=== PATIENT | male | born 1960 | race American Indian/Alaskan Native ===

== ENCOUNTER 2016-08-21 14:38 | Emergency (ER) | payer OTHER ==
[2016-08-21 14:54] VITALS: TEMP 98.7
--- NOTE | 2016-08-21 15:39 | C.PDOC ---
History Of Present Illness 55 y/o male presents to ED with complaints of right hip pain for 1 week with radiation down to leg. Patient states pain comes and goes and has experiences symptoms before. Patient denies trauma, weakness, numbness or any other complaints at this time. Time Seen by Provider: 08/21/16 15:23 Chief Complaint (Nursing): Lower Extremity Problem/Injury History Per: Patient History/Exam Limitations: no limitations Onset/Duration Of Symptoms: Days Current Symptoms Are (Timing): Still Present Past Medical History Reviewed: Historical Data, Nursing Documentation, Vital Signs Vital Signs: Last Vital Signs Temp 98.7 F 08/21/16 16:45 Pulse 83 08/21/16 16:45 Resp 18 08/21/16 16:45 BP 144/80 08/21/16 16:45 Pulse Ox 98 08/21/16 16:45 - Medical History PMH: HTN Family History: States: No Known Family Hx - Social History Hx Alcohol Use: No Hx Substance Use: No - Immunization History Hx Tetanus Toxoid Vaccination: No Hx Influenza Vaccination: No Hx Pneumococcal Vaccination: No Review Of Systems Constitutional: Negative for: Weakness Gastrointestinal: Negative for: Nausea, Vomiting, Diarrhea Musculoskeletal: Positive for: Leg Pain, Other (Hip Pain). Negative for: Neck Pain Skin: Negative for: Rash Neurological: Negative for: Weakness, Numbness Physical Exam - Physical Exam Appears: Non-toxic, No Acute Distress Skin: Normal Color, Warm Head: Atraumatic, Normacephalic Neck: Normal ROM Back: Other (Mild tenderness to proximal hip, Full ROM at hip) Neurological/Psych: Oriented x3, Normal Motor, Normal Sensation, Normal Reflexes ED Course And Treatment O2 Sat by Pulse Oximetry: 99 (RA) Pulse Ox Interpretation: Normal Disposition Counseled Patient/Family Regarding: Diagnosis, Need For Followup - Disposition Referrals: Julio C Herbert MD [Staff Provider] - Disposition: HOME/ ROUTINE Disposition Time: 16:30 Condition: STABLE Additional Instructions: Follow up with Dr Herbert as scheduled. Take Tylenol or Ibupforen for pain if needed. Avoid prolonged sitting. Return to ER for worse pain, weakenss, numbness or tingling or any other worsening symptoms. Forms: General Discharge Instructions - Clinical Impression Clinical Impression: Hip pain, right - PA / [employer]ELOPER / Resident Statement MD/DO has reviewed & agrees with the documentation as recorded. - Scribe Statement The provider has reviewed the documentation as recorded by the Scribe Akbar Rajput All medical record entries made by the Scribe were at my direction and personally dictated by me. I have reviewed the chart and agree that the record accurately reflects my personal performance of the history, physical exam, medical decision making, and the department course for this patient. I have also personally directed, reviewed, and agree with the discharge instructions and disposition.
[2016-08-21 16:51] VITALS: BP 144/80; PULSE 83; RESP 18
[2016-08-21 19:29] VITALS: O2SAT 99
== END 2016-08-21 16:50 | disposition home or self-care (01) ==
LOC: C.ER 14:38
DX: M25.551 Pain in right hip (principal)

== ENCOUNTER 2017-04-25 11:36 | Emergency (ER) | payer OTHER ==
[2017-04-25 12:08] VITALS: O2SAT 97
--- NOTE | 2017-04-25 12:49 | C.PDOC ---
History Of Present Illness 56-year-old male, presents to the emergency department with complaints of cough , congestion, malaise, body aches, and fever that started one week ago. Patient denies any recent travel, chest pain or SOB. States family members sick at home with cough and colds. Time Seen by Provider: 04/25/17 12:23 Chief Complaint (Nursing): Cough, Cold, Congestion History Per: Patient History/Exam Limitations: no limitations Onset/Duration Of Symptoms: Days Current Symptoms Are (Timing): Still Present Sick Contacts (Context): Family Member(s) Past Medical History Reviewed: Historical Data, Nursing Documentation, Vital Signs Vital Signs: Last Vital Signs Temp 99.7 F H 04/25/17 14:44 Pulse 80 04/25/17 14:44 Resp 24 04/25/17 14:44 BP 155/90 H 04/25/17 14:44 Pulse Ox 97 04/25/17 14:44 - Medical History PMH: Diabetes, HTN Surgical History: No Surg Hx Family History: States: No Known Family Hx - Social History Hx Alcohol Use: No Hx Substance Use: No - Immunization History Hx Tetanus Toxoid Vaccination: No Hx Influenza Vaccination: No Hx Pneumococcal Vaccination: No Review Of Systems Constitutional: Positive for: Fever. Negative for: Weakness, Malaise ENT: Positive for: Nose Congestion. Negative for: Throat Pain Cardiovascular: Negative for: Chest Pain Respiratory: Positive for: Cough. Negative for: Shortness of Breath Gastrointestinal: Negative for: Vomiting Genitourinary: Negative for: Dysuria, Frequency Musculoskeletal: Negative for: Back Pain Skin: Negative for: Rash Neurological: Negative for: Weakness, Numbness, Headache, Dizziness Physical Exam - Physical Exam Appears: Non-toxic, No Acute Distress Skin: Normal Color, Warm, Dry, No Diaphoretic, No Rash Head: Atraumatic, Normacephalic Eye(s): bilateral: Normal Inspection, EOMI Ear(s): Bilateral: Normal (no erythema) Nose: Normal, No Flaring, No Discharge Oral Mucosa: Moist Lips: Normal Appearing Throat: No Erythema, No Exudate Neck: Normal ROM, Supple, Other ((-)meningeal signs) Chest: Symmetrical Cardiovascular: Rhythm Regular (Tachycardic), No Murmur Respiratory: Normal Breath Sounds, No Accessory Muscle Use, No Rales, No Rhonchi , No Wheezing Extremity: Normal ROM, No Tenderness, No Deformity, No Swelling Neurological/Psych: Oriented x3, Normal Speech Gait: Steady ED Course And Treatment O2 Sat by Pulse Oximetry: 97 (RA) Pulse Ox Interpretation: Normal Medical Decision Making Medical Decision Making: Patient with multi-symptom complaints, possibly viral. Patient has not received Flu vaccine this season. Based on history, exam findings and widespread influenza , these symptoms are likely Flu, and patient has sick contacts. He is out of time frame for Tamiflu. Patient appears non-toxic and in no distress. O2 saturation is low. Will order duoneb and CXR. Prednisone also given. CXR read by radiologist as mild patchy right infiltrate. Zithromax given. Patient stable for discharge and given follow up instructions. Disposition Counseled Patient/Family Regarding: Diagnosis, Need For Followup, Rx Given - Disposition Referrals: Breonna Corrales MD [Medical Doctor] - Disposition: HOME/ ROUTINE Disposition Time: 12:48 Condition: STABLE Additional Instructions: Take antibiotic as prescribed. Take Tylenol or Motrin alternating every 4-6 hours for Fever 100.4F or higher. Rest and drink plenty of fluids. Follow up with your primary medical doctor or clinic in 2-5 days for further evaluation. Return to the emergency department at any time if symptoms persist or worsen. Prescriptions: Azithromycin [Zithromax] 250 mg PO DAILY #4 tab Ibuprofen [Motrin] 1 tab PO TID PRN #30 tab PRN Reason: Pain Promethazine DM [Phenergan DM Syrup] 10 ml PO Q8 PRN #300 ml PRN Reason: Cough Instructions: Pneumonia, Adult (DC) Forms: [facility] (Bel[place]ian), Work Excuse - POA Present On Arrival: None - Clinical Impression Clinical Impression: Influenza-like illness, Pneumonia - Scribe Statement The provider has reviewed the documentation as recorded by the Scribe (Zeynep Wick) All medical record entries made by the Scribe were at my direction and personally dictated by me. I have reviewed the chart and agree that the record accurately reflects my personal performance of the history, physical exam, medical decision making, and the department course for this patient. I have also personally directed, reviewed, and agree with the discharge instructions and disposition.
--- NOTE | 2017-04-25 14:29 | RAD ---
HISTORY: cough, fever COMPARISON: None available. TECHNIQUE: Chest PA and lateral FINDINGS: LUNGS: Mild patchy right lung base and retrocardiac infiltrates. PLEURA: No significant pleural effusion identified. No definite pneumothorax . CARDIOVASCULAR: Cardiomegaly. Ectatic aorta. OSSEOUS STRUCTURES: Degenerative changes. VISUALIZED UPPER ABDOMEN: Unremarkable. OTHER FINDINGS: None. IMPRESSION: Mild patchy right base and retrocardiac infiltrates.
[2017-04-25 14:45] VITALS: BP 155/90; PULSE 80; RESP 24; TEMP 99.7
== END 2017-04-25 14:55 | disposition home or self-care (01) ==
LOC: C.ER 11:36
DX: J11.00 Influenza due to unidentified influenza virus with unspecified type of pneumonia (principal)

== ENCOUNTER 2017-06-12 10:16 | Emergency (ER) | payer OTHER ==
[2017-06-12 10:30] VITALS: BMI 25.1
[2017-06-12] MEDS ORDERED: Sodium Chloride 0.9% 1,000 ML ONE (11:59)
[2017-06-12] MEDS: Sodium Chloride 0.9% 1,000 ML IV ONE ×2 (11:59→12:57)
--- NOTE | 2017-06-12 12:01 | C.PDOC ---
History Of Present Illness 56 y/o male with history of HTN and DM presents to ED with complaints of urinary frequency and weight loss for "awhile" worsen now which prompted visit to ED today. Patient states he was put on Flomax by PMD 3 weeks ago with no improvement. Patient denies hematuria, back pain, nausea, vomiting, fever or any other complaints at this time. Time Seen by Provider: 06/12/17 11:15 Chief Complaint (Nursing): Male Genitourinary History Per: Patient History/Exam Limitations: no limitations Onset/Duration Of Symptoms: Days Current Symptoms Are (Timing): Still Present Associated Symptoms: Urinary Symptoms Past Medical History Reviewed: Historical Data, Nursing Documentation, Vital Signs Vital Signs: Last Vital Signs Temp 98.2 F 06/12/17 15:22 Pulse 64 06/12/17 15:22 Resp 16 06/12/17 15:22 BP 152/80 H 06/12/17 15:22 Pulse Ox 97 06/12/17 15:22 - Medical History PMH: Diabetes, HTN Surgical History: No Surg Hx Family History: States: No Known Family Hx - Social History Hx Alcohol Use: No Hx Substance Use: No - Immunization History Hx Tetanus Toxoid Vaccination: No Hx Influenza Vaccination: No Hx Pneumococcal Vaccination: No Review Of Systems Constitutional: Negative for: Fever, Chills Cardiovascular: Negative for: Chest Pain Gastrointestinal: Negative for: Nausea, Vomiting Genitourinary: Positive for: Frequency. Negative for: Dysuria, Hematuria Musculoskeletal: Negative for: Back Pain Skin: Negative for: Rash Neurological: Negative for: Weakness, Numbness Physical Exam - Physical Exam Appears: Non-toxic, No Acute Distress Skin: Warm, Dry, No Rash Head: Atraumatic, Normacephalic Oral Mucosa: Moist Lips: Normal Appearing Neck: Normal ROM, Supple Cardiovascular: Rhythm Regular Respiratory: Normal Breath Sounds, No Rales, No Rhonchi, No Wheezing Gastrointestinal/Abdominal: Soft, No Tenderness, No Distention, No Guarding, No Rebound Back: No CVA Tenderness Extremity: Normal ROM, Capillary Refill (<2 seconds) Neurological/Psych: Oriented x3, Normal Speech Gait: Steady ED Course And Treatment - Laboratory Results Result Diagrams: 06/12/17 11:57 06/12/17 11:57 Lab Interpretation: Abnormal O2 Sat by Pulse Oximetry: 99 (RA) Pulse Ox Interpretation: Normal - CT Scan/US No standard instances Other Rad Studies (CT/US): Read By Radiologist, Radiology Report Reviewed CT/US Interpretation: FINDINGS: LOWER THORAX: Cardiomegaly. No focal consolidation or pleural effusion. LIVER: Unremarkable. No gross lesion or ductal dilatation. GALLBLADDER AND BILE DUCTS: Unremarkable. PANCREAS: Unremarkable. No gross lesion or ductal dilatation. SPLEEN: Unremarkable. ADRENALS: Unremarkable. No mass. KIDNEYS AND URETERS: Unremarkable. No hydronephrosis. No solid mass. VASCULATURE: Unremarkable. No aortic aneurysm. BOWEL: Unremarkable. No obstruction. No gross mural thickening. APPENDIX: Not visualized. PERITONEUM: Nonobstructive bowel containing right inguinal hernia. No free fluid. No free air. LYMPH NODES: Unremarkable. No enlarged lymph nodes. BLADDER: Unremarkable. REPRODUCTIVE: Unremarkable. BONES: No acute fracture. Multilevel degenerative changes. OTHER FINDINGS: None. IMPRESSION: Markedly limited examination due to paucity of intra-abdominal fat. No urolithiasis. Nonobstructive bowel containing right inguinal hernia. Progress Note: Blood work, UA, CT abdomen/pelvis ordered. IV fluids 2 liters NSS administered. On re-evaluation lungs clear in no distress. Patient instructed to take meds as directed and follow up with PMD for further evaluation Reassessment Condition: Improved Medical Decision Making Medical Decision Making: Patient did not take his medications today Discharged in stable condition and advised to follow up with PMD judy re- evaluation take meds as directed Disposition Counseled Patient/Family Regarding: Studies Performed, Diagnosis, Need For Followup - Disposition Referrals: [facility] [Outside] [facility] [Outside] Disposition: HOME/ ROUTINE Disposition Time: 15:00 Condition: STABLE Additional Instructions: Return to ED if any increase symptoms Follow up with your PMD for further evaluation Instructions: Hyperglycemia, Adult, The ABCs of Diabetes Forms: [facility] ([place]an) - POA Present On Arrival: None - Clinical Impression Clinical Impression: Hyperglycemia - PA / [employer]KER / Resident Statement MD/DO has reviewed & agrees with the documentation as recorded. - Scribe Statement The provider has reviewed the documentation as recorded by the Marisolibmaged Rajput All medical record entries made by the Marisolibmaged were at my direction and personally dictated by me. I have reviewed the chart and agree that the record accurately reflects my personal performance of the history, physical exam, medical decision making, and the department course for this patient. I have also personally directed, reviewed, and agree with the discharge instructions and disposition.
[2017-06-12 12:02] LABS: EOS % 0.9 % (0.0-4.0); HEMOGLOBIN 13.4 g/dL (12.0-18.0); LYMPH # 1.5 K/uL (1.0-4.3); LYMPH % 33.3 % (20.0-40.0); MEAN CORPUSCULAR HEMOGLOBIN 28.1 pg (27.0-31.0); MEAN CORPUSCULAR HGB CONC 32.3 g/dL (33.0-37.0); MEAN PLATELET VOLUME 11.3 fL (7.2-11.7); MONO # 0.2 K/uL (0.0-0.8); MONO % 5.3 % (0.0-10.0); NEUT # 2.6 K/uL (1.8-7.0); NEUT % 59.5 % (50.0-75.0); NRBC % 0.1 % (0.0-2.0); RBC 4.77 Mil/uL (4.40-5.90); RED CELL DISTRIBUTION WIDTH 14.3 % (11.5-14.5); WHITE BLOOD COUNT 4.4 K/uL (4.8-10.8)
[2017-06-12 12:14] LABS: URINE BILIRUBIN NEGATIVE (NEGATIVE); URINE BLOOD NEGATIVE (NEGATIVE); URINE CLARITY Clear (Clear); URINE COLOR Straw (YELLOW); URINE GLUCOSE (UA) 3+ mg/dL (Normal); URINE LEUKOCYTE ESTERASE NEG Leu/uL (Negative); URINE PROTEIN NEGATIVE (NEGATIVE); URINE UROBILINOGEN NORMAL mg/dL (0.2-1.0)
[2017-06-12 12:43] LABS: ALB/GLOB RATIO 1.1 (1.0-2.1); ALBUMIN 4.3 g/dL (3.5-5.0); ALT/SGPT 89 U/L (21-72); AST/SGOT 78 U/L (17-59); BLOOD UREA NITROGEN 12 mg/dL (9-20); CALCIUM 9.6 mg/dl (8.6-10.4); GFR AFRICAN-AMERICAN > 60; GFR NON-AFRICAN AMERICAN > 60; LIPASE 267 U/L (23-300)
--- NOTE | 2017-06-12 14:13 | CT ---
PROCEDURE: CT Abdomen and Pelvis without intravenous contrast HISTORY: Pain COMPARISON: None. TECHNIQUE: Contiguous images were obtained from the domes of the diaphragms to the upper thighs without the administration of intravenous contrast. Oral contrast was not administered. Radiation dose: Total exam DLP = 419.7 mGy-cm. This CT exam was performed using one or more of the following dose reduction techniques: Automated exposure control, adjustment of the mA and/or kV according to patient size, and/or use of iterative reconstruction technique. FINDINGS: LOWER THORAX: Cardiomegaly. No focal consolidation or pleural effusion. LIVER: Unremarkable. No gross lesion or ductal dilatation. GALLBLADDER AND BILE DUCTS: Unremarkable. PANCREAS: Unremarkable. No gross lesion or ductal dilatation. SPLEEN: Unremarkable. ADRENALS: Unremarkable. No mass. KIDNEYS AND URETERS: Unremarkable. No hydronephrosis. No solid mass. VASCULATURE: Unremarkable. No aortic aneurysm. BOWEL: Unremarkable. No obstruction. No gross mural thickening. APPENDIX: Not visualized. PERITONEUM: Nonobstructive bowel containing right inguinal hernia. No free fluid. No free air. LYMPH NODES: Unremarkable. No enlarged lymph nodes. BLADDER: Unremarkable. REPRODUCTIVE: Unremarkable. BONES: No acute fracture. Multilevel degenerative changes. OTHER FINDINGS: None. IMPRESSION: Markedly limited examination due to paucity of intra-abdominal fat. No urolithiasis. Nonobstructive bowel containing right inguinal hernia.
[2017-06-12 15:22] VITALS: BP 152/80; PULSE 64; RESP 16; TEMP 98.2
[2017-06-12 17:46] VITALS: O2SAT 99
== END 2017-06-12 15:22 | disposition home or self-care (01) ==
LOC: C.ER 10:16
DX: E11.65 Type 2 diabetes mellitus with hyperglycemia (principal); I10 Essential (primary) hypertension
CPT/HCPCS: 74176; 80053; 81001; 82948; 83690; 85025; 87086; 96360; 96361; 99285; J7040